=== PATIENT | male | born 1985 | race Caucasian/White ===

== ENCOUNTER 2019-09-08 19:26 | Emergency (ER) | payer BC ==
[2019-09-08] MEDS ORDERED: Bacitracin Oint 1 GM U/D Packet TOP ONE (20:02)
[2019-09-08] MEDS ORDERED: Lidocaine 1% with EPINEPHrine 1:100,000 50 ML MDV SUBCUT STA (20:02)
[2019-09-08] MEDS ORDERED: Diphtheria,Pertussis(Acell),Tetanus Vaccine 0.5 ML SDV IM ONE (20:02)
--- NOTE | 2019-09-08 20:43 | EDM.PDOC ---
ED HPI GENERAL MEDICAL PROBLEM - General Chief Complaint: Laceration Stated Complaint: LACERATION RIGHT FOREARM Time Seen by Provider: 09/08/19 20:00 Source of Information: Reports: Patient, RN Notes Reviewed History Limitations: Reports: No Limitations - History of Present Illness INITIAL COMMENTS - FREE TEXT/NARRATIVE: 34-year-old gentleman presents the emergency department today with a laceration to his right forearm anterior aspect he injured himself when he slipped in his dining room and caught the corner of a dresser he has no functional complaints - Related Data Allergies Allergy/AdvReac Type Severity Reaction Status Date / Time No Known Allergies Allergy Verified 09/08/19 19:42 Home Meds: Home Meds NK [No Known Home Meds] 09/08/19 [History] Past Medical History - Past Health History Medical/Surgical History: Denies Medical/Surgical History Social & Family History - Tobacco Use Smoking Status *Q: Current Every Day Smoker Years of Tobacco use: 15 Packs/Tins Daily: 0.5 ED ROS GENERAL - Review of Systems Review Of Systems: See Below Constitutional: Reports: No Symptoms Musculoskeletal: Reports: No Symptoms Skin: Reports: Wound Neurological: Reports: No Symptoms ED EXAM, SKIN/RASH Exam: See Below Exam Limited By: No Limitations General Appearance: Alert, WD/WN, No Apparent Distress Front/Back Body Diagram: 1 - 5 cm laceration completely through the dermis into the subcutaneous tissue ED SKIN PROCEDURES - Laceration/Wound Repair Right Arm Appearance: Subcutaneous, Muscle, Irregular Distal NVT: Neuro & Vascular Intact, No Tendon Injury Anesthetic Type: Local Local Anesthesia - Lidocaine (Xylocaine): 1% with EPI Local Anesthetic Volume: 2cc Skin Prep: Chlorhexidine (Hibiciens), Saline Saline Irrigation (cc's): 60 Exploration/Debridement/Repair: Wound Explored, In a Bloodless Field, Explored to Base Closed with: Sutures Lac/Wound length In cm: 5 Suture Size: 4-0 # of Sutures: 9 Suture Type: Interrupted Suture Size: 4-0 # of Sutures: 3 Repaired with: Vicryl (,) Tetanus Status Addressed: Yes Complications: No Course - Vital Signs Last Recorded V/S: Last Vital Signs Temp 97.5 F 09/08/19 19:48 Pulse 99 09/08/19 19:48 Resp 14 09/08/19 19:48 BP 146/87 H 09/08/19 19:48 Pulse Ox 98 09/08/19 19:48 - Orders/Labs/Meds Orders: Active Orders 24 hr Category Date Time Status Vaccines to be Administered [RC] PER UNIT ROUTINE Care 09/08/19 20:02 Active Meds: Medications Discontinued Medications Generic Name Dose Route Start Last Admin Trade Name Kavita PRN Reason Stop Dose Admin Bacitracin 1 dose 09/08/19 20:02 09/08/19 20:11 Bacitracin Oint 1 Gm TOP 09/08/19 20:03 1 dose ONETIME ONE Administration Diphtheria/Tetanus/Acell Pertussis 0.5 ml 09/08/19 20:02 09/08/19 20:11 Adacel IM 09/08/19 20:03 0.5 ml .ONCE ONE Administration Lidocaine/Epinephrine 20 ml 09/08/19 20:02 09/08/19 20:10 Xylocaine 1% With Epinephrine 1:100,000 SUBCUT 09/08/19 20:03 20 ml NOW STA Administration Departure - Departure Time of Disposition: 20:42 Disposition: Home, Self-Care 01 Condition: Fair Clinical Impression: Laceration of right forearm Qualifiers: Encounter type: initial encounter Qualified Code(s): S51.811A - Laceration without foreign body of right forearm, initial encounter - Discharge Information Instructions: Laceration Care, Adult, [id number] Referrals: PCP,None [Primary Care Provider] - Additional Instructions: suture removal in 10 days, use Tylenol or Motrin as needed for pain control follow wound care instruction sheet, Return to the clinic or the emergency department for suture removal call or return with worsening of symptoms Sepsis Event Note - Evaluation Sepsis Screening Result: No Definite Risk - Focused Exam Vital Signs: Vital Signs Temp Pulse Resp BP Pulse Ox 09/08/19 19:48 97.5 F 99 14 146/87 H 98 Date Exam was Performed: 09/08/19 Time Exam was Performed: 20:38 - My Orders Last 24 Hours: My Active Orders 09/08/19 20:02 Vaccines to be Administered [RC] PER UNIT ROUTINE - Assessment/Plan Last 24 Hours: My Active Orders 09/08/19 20:02 Vaccines to be Administered [RC] PER UNIT ROUTINE Plan: Assessment Acuity = acute Site and laterality = 5 cm laceration right arm Etiology = secondary trauma at home Manifestations = none Location of injury = Home Lab values = none Plan Updated tetanus today follow wound care instruction sheet suture removal in 10 days This note was dictated using [employer] voice recognition software please call with any questions on syntax or grammar.
== END 2019-09-08 21:30 | disposition home or self-care (01) ==
LOC: JP.ED 19:26
DX: S51.811A Laceration without foreign body of right forearm, initial encounter (principal); F17.210 Nicotine dependence, cigarettes, uncomplicated; Z23 Encounter for immunization; W22.8XXA Striking against or struck by other objects, initial encounter; Y92.009 Unspecified place in unspecified non-institutional (private) residence as the place of occurrence of the external cause
CPT/HCPCS: 12032; 90471; 90715; 99282-25